=== PATIENT | female | born 1940 | race Caucasian/White ===

== ENCOUNTER 2021-06-16 14:17 | Outpatient (CLI) | payer MEDICARE ==
[2021-06-17 12:46] LABS: SARS-CoV-2 PCR by NAA Not Detected (NotDetected)
== END 2021-06-16 14:18 | disposition home or self-care (01) ==
LOC: CSHLAB 14:17
PROVIDERS: ATTEND Internal Medicine Cardiovascular Disease
DX: Z20.822 Contact with and (suspected) exposure to COVID-19 (principal)
CPT/HCPCS: U0003; U0005